=== PATIENT | male | born 1965 | race Caucasian/White ===

== ENCOUNTER 2021-07-04 13:41 | Emergency (ER) | payer OTHER, SELFPAY ==
[2021-07-04 13:42] VITALS: BP 129/86; PULSE 110; RESP 20; TEMP 37.2; O2SAT 95; BMI 29.7
--- NOTE | 2021-07-04 13:57 | EKG12_ITS ---
Test Reason : SOB Blood Pressure : / mmHG Vent. Rate : 091 BPM Atrial Rate : 091 BPM P-R Int : 156 ms QRS Dur : 094 ms QT Int : 316 ms P-R-T Axes : 031 041 034 degrees QTc Int : 388 ms Normal sinus rhythm Normal ECG Confirmed by ANKIT SOTO, BEATRICE ([id number]), design editor CURT ROSE ([id number]) on 07/08/2021 11:23:28 AM Referred By: EARL Confirmed By:BEATRICE PHAM MD
--- NOTE | 2021-07-04 13:57 | RAD_ITS ---
STUDY: X-RAY CHEST REASON FOR EXAM: Male, 56 years old. Cough sob covid X 2 DAYS TECHNIQUE: Single AP portable view of the chest. COMPARISON: Comparison is made with prior study 03/29/2014. FINDINGS: The lungs are clear and expanded. There is no demonstrated pleural abnormality. Normal size heart. Normal mediastinum and minna. Normal visualized pulmonary arteries. Normal visualized aortic arch and descending thoracic aorta. Normal visualized thoracic spine. Normal visualized ribs, clavicles, and shoulders. There is no demonstrated abnormality of the visualized soft tissue structures of the upper abdomen. RAD/Chest 1 View (Portable) IMPRESSION: Normal x-ray examination of the chest. Electronically Signed: Mello Tom MD at 14:31 EST , Service support ,
--- NOTE | 2021-07-04 13:58 | ED.VIS.DYS ---
HPI History of Present Illness Chief Complaint: Shortness of Breath Informant: patient Onset/Context/Timing Onset: Days (2-3) Context: gradual Timing: Continuous Quality: Positive for - (sob more due to nasal congestion) Current Severity: Mild Maximum Severity: Mild Worsened by: Nothing Relieved by: Nothing Associated Symptoms cough and yellow sputum Chest Pain: Positive for Tightness Narrative Narrative: Patient started having cough, congestion, malaise, fevers 2 days ago, tested positive for COVID by a test that was done by his doctor's office yesterday. He has been having chest discomfort nonpleuritic tightness substernal nonlocalized since the onset of the symptoms for the past 2 days and some mild dyspnea that he attributes more to nasal congestion and upper respiratory rhinorrhea. He states he was checking his pulse oximetry at home and it was 90-91%. When he was at the doctor's office yesterday, they checked it and told him it is low and discharged him, he does not know what the number was and they did not tell him he needed oxygen. Patient was vaccinated back in February, he had 2 doses of the Pfizer vaccine, no booster. [facility] Medical History (Updated 07/04/21 @ 15:[address] Isai Quiñonez MD) Hypertension Home Medications ibuprofen 400 mg PO Q6H PRN #30 tablet 03/31/14 [Rx Last Taken Unknown] lisinopril-hydrochlorothiazide [Zestoretic] 1 tab PO DAILY #30 tablet 03/31/14 [Rx Last Taken Unknown] Allergy/AdvReac Type Severity Reaction Status Date / Time venom-honey bee Allergy Anaphylaxis Verified 07/04/21 13:42 [bee venom (honey bee)] Surgical History (Updated 07/04/21 @ 14:14 by Nga Luna) History of appendectomy Social History Smoking Status: Never smoker ROS ROS ED Constitutional Constitutional ED: Reports body ache(s), chills, fatigue, fever(s), headache(s) and malaise Eyes Eyes: Denies change in vision or diplopia ENT ENT ED: Reports nasal congestion, rhinorrhea and sore throat; Denies ear pain Cardiovascular Cardiovascular: Denies chest pain or palpitations Respiratory/Chest Respiratory/Chest: Reports cough, dyspnea and dyspnea on exertion Gastrointestinal Gastrointestinal: Denies abdominal pain, diarrhea, nausea or vomiting Genitourinary Genitourinary ED: Denies dysuria or hematuria Musculoskeletal Musculoskeletal: Denies back pain or neck pain Integumentary Denies abscess or rash Neurologic Neurologic: Reports headache(s); Denies paresthesias or weakness Psychiatric Psychiatric: Denies anxiety or suicidal thoughts EXAM Physical Exam Const Vital Signs: 07/04/21 13:42 07/04/21 14:13 07/04/21 14:37 Temperature 98.9 F Temperature Source Temporal Pulse Rate 110 H Respiratory Rate 20 H Blood Pressure 129/86 H Blood Pressure Mean 100 Pulse Ox 95 88 Oxygen Delivery Method Room Air Room Air Room Air Oxygen Flow Rate (L/min) 07/04/21 14:38 Temperature Temperature Source Pulse Rate Respiratory Rate Blood Pressure Blood Pressure Mean Pulse Ox Oxygen Delivery Method Nasal Cannula Oxygen Flow Rate (L/min) 2 Positive well nourished and well developed Constitutional Narrative: Malaised-appearing, no distress General Appearance ED: well developed and NAD HEENT Reports moist mucous membranes normocephalic and atraumatic Eyes PERRL and EOMs intact bilaterally Neck full ROM and supple Resp normal respiratory effort and clear to auscultation bilaterally Cardio regular rate, regular rhythm and no murmurs Rate: Negative for tachycardic GI non-tender and non-distended Auscultation: normoactive bowel sounds Palpation: soft Back/Spine no CVA tenderness General Back: other FROM Extremity normal to inspection and no calf tenderness General Extremety ED: Negative for edema, pulses abnormal or tenderness General Extremity: Negative for edema or pulses abnormal Neuro oriented x3, CN's II-XII intact bilaterally and no sensory deficits noted Sensorium / Orientation: awake and alert Motor Exam: strength 5/5 throughout Skin no rashes or lesions noted and no wounds MDM MDM MDM Narrative Medical decision making narrative: EKG and chest x-ray are normal. Reassured given patient is not hypoxic or 95%, he does not need further testing right now, he does not have symptoms of a PE and I do not think he needs testing for this right now. He is a candidate for monoclonal antibody infusion therapy given his hypertension, he was referred and discharged with instructions to use [id number] treatment such as Coricidin HPB for his upper respiratory congestion/symptoms. Discussed reasons to return. Radiography Diagnostic Testing: Clinical Impression(s) from Imaging Studies Chest X-Ray 07/04/21 13:57 IMPRESSION: Normal x-ray examination of the chest. Electronically Signed: Mello Tom MD at 14:31 EST , Service support , EKG Initial EKG: Attestation: I personally reviewed and interpreted this EKG as follows: Interpretation: Sinus Rhythm and No Acute Injury Pattern Comments: Normal EKG Discharge Plan Triage Chief Complaint: Shortness of Breath Other Complaint: Cough ED Provider: Isai Quiñonez Dx/Rx/DC Orders Clinical Impression: COVID-19 Instructions: Coronavirus Disease 2019 (COVID-19): Caring for Yourself or Others, ED - COVID Monoclonal AB Infusion ... Prescriptions: No Action ibuprofen 400 MG tablet 400 mg PO Q6H PRN (Reason: Pain) Qty: 30 RF: 0 lisinopril-hydrochlorothiazide [Zestoretic] 1 TABLET tablet 1 tab PO DAILY Qty: 30 RF: 0 Primary Care Provider: Eduardo Chang Referrals: Eduardo Chang MD [Primary Care Provider] - Activity Restrictions/Additional Instructions: Try to get a home portable pulse oximeter and closely watch your oxygen levels periodically. If you stay below 90% for more than a minute or so, and/or you are feeling like your breathing is getting worse, return to the emergency department for further evaluation. You are a candidate for monoclonal antibody infusion therapy, see the attached instructions for more information. They will call you concerning when they want you to come to the clinic to get the infusion which is a one-time dose to help protect you from getting more ill and becoming hospitalized with life-threatening illness due to Covid given your risk for worsening. Disposition Disposition: Home, Self Care
[2021-07-04 14:13] VITALS: O2SAT 91
[2021-07-04 14:37] VITALS: O2SAT 88
[2021-07-04 15:35] VITALS: PULSE 88; RESP 18; O2SAT 96
[2021-07-04 15:36] VITALS: O2SAT 94
== END 2021-07-04 15:36 | disposition home or self-care (01) ==
PROVIDERS: Emergency Provider Emergency Medicine; PCP Family Medicine; Visit Provider Emergency Medicine
DX: U07.1 COVID-19 (principal); I10 Essential (primary) hypertension; Z79.899 Other long term (current) drug therapy
CPT/HCPCS: 71045; 93005; 99282